=== PATIENT | male | born 1955 | race African-American/Black ===

== ENCOUNTER 2018-12-26 19:09 | Inpatient (IN) | payer MEDICAID, OTHER ==
[~2018-12-26] VITALS: Ht 175.3 cm; Wt 86.6 kg
[2018-12-26] MEDS ORDERED: NITROGLYCERIN OINT 1GM/INCH UDPKT TD ONE (20:00)
[2018-12-26] MEDS ORDERED: ASPIRIN 81MG TABLET PO ONE (20:00)
[2018-12-26 20:19] LABS: HEMATOCRIT. 40.4 % (42.0-52.0); HEMOGLOBIN. 12.4 g/dL (14.0-18.0); MEAN CORPUSCULAR HEMOGLOBIN 26.1 pg (28.0-32.0); MEAN CORPUSCULAR VOLUME 85.1 fL (80.0-94.0); MEAN PLATELET VOLUME 7.8 fl (7.4-10.4); PLATELET 294 x1000/uL (130-400); RED BLOOD CELL COUNT 4.75 mill/uL (4.7-6.1); RED CELL DISTRIBUTION WIDTH 19.6 % (11.6-14.6)
[2018-12-26 20:22] LABS: CHLORIDE 104 mEq/L (98-107)
[2018-12-26 20:44] LABS: PLATELET ESTIMATE NORMAL
[2018-12-26] MEDS ORDERED: FUROSEMIDE 40MG/4ML VIAL IVP ONE (21:45)
[2018-12-26] MEDS ORDERED: MORPHINE SULFATE 4 MG/ML CPJ (NOT FOR IM USE) IV ONE (21:45)
[2018-12-26 23:00] VITALS: BP 138/97
[2018-12-26 23:30] VITALS: BP 138/97
[2018-12-26] MEDS ORDERED: ACETAMINOPHEN 325MG TABLET PO PRN (23:30)
[2018-12-26] MEDS ORDERED: CLONIDINE 0.1MG TABLET PO PRN (23:30)
[2018-12-26] MEDS ORDERED: HYDRALAZINE 20MG/ML VIAL IV PRN (23:30)
[2018-12-26] MEDS ORDERED: ONDANSETRON HCL 4MG/2ML INJ IV PRN (23:30)
[2018-12-26] MEDS ORDERED: IPRATROPIUM/ALBUTEROL 0.5-3(2.5)MG/3ML NEB INH PRN (23:30)
[2018-12-26] MEDS ORDERED: GUAIFENESIN 200MG/10ML SUGAR FREE UDC PO PRN (23:30)
[2018-12-26] MEDS ORDERED: DEXTROSE 50% WATER 50ML SYRINGE IV PRN (23:30)
[2018-12-26] MEDS ORDERED: LORAZEPAM 2MG/ML CPJ IV PRN (23:30)
[2018-12-27] MEDS: SODIUM CHLORIDE 0.9% INJ 3ML FLUSH IVF SCH ×3 (06:00→21:05)
[2018-12-27] MEDS: BLOOD SUGAR DIAGNOSTIC STRIP TEST SCH ×4 (07:03→20:44)
[2018-12-27 07:28] LABS: HEMATOCRIT. 40.8 % (42.0-52.0); HEMOGLOBIN. 12.6 g/dL (14.0-18.0); MEAN CORPUSCULAR HEMOGLOBIN 26.2 pg (28.0-32.0); MEAN CORPUSCULAR VOLUME 85.1 fL (80.0-94.0); MEAN PLATELET VOLUME 8.3 fl (7.4-10.4); PLATELET 274 x1000/uL (130-400); RED BLOOD CELL COUNT 4.79 mill/uL (4.7-6.1); RED CELL DISTRIBUTION WIDTH 19.4 % (11.6-14.6)
[2018-12-27 07:53] LABS: CHLORIDE 106 mEq/L (98-107)
[2018-12-27 08:21] LABS: LDL CHOLESTEROL 38 mg/dL (5-100)
[2018-12-27 08:22] LABS: CREATINE KINASE 74 IU/L (39-308); HDL CHOLESTEROL 89 mg/dL (40-59)
[2018-12-27 08:26] LABS: CREATINE KINASE MB FRACTION 3.5 ng/mL (0.5-3.6); T4 FREE 1.47 ng/dL (0.76-1.46)
[2018-12-27] MEDS: INSULIN LISPRO 100 UNITS/ML SUBCUT SCH ×4 (08:31→20:44)
[2018-12-27] MEDS: ASPIRIN 81MG EC TABLET PO SCH (08:32)
[2018-12-27] MEDS: FUROSEMIDE 40MG/4ML VIAL IV SCH ×2 (08:32→18:27)
[2018-12-27] MEDS ORDERED: ENOXAPARIN 30MG/0.3ML SYR SUBCUT SCH (09:00)
[2018-12-27] MEDS ORDERED: ENOXAPARIN 60MG/0.6ML SYR SUBCUT SCH (09:45)
[2018-12-27] MEDS: HYDROMORPHONE HCL/PF 2MG/ML CPJ IV PRN ×2 (11:42→18:23)
[2018-12-27 12:00] VITALS: BP 124/89
[2018-12-27 14:22] LABS: PLATELET ESTIMATE NORMAL
[2018-12-27 16:00] VITALS: BP 106/77
[2018-12-27 16:07] LABS: CREATINE KINASE MB FRACTION 3.3 ng/mL (0.5-3.6)
[2018-12-27] MEDS: LEVOFLOXACIN 500MG PREMIX 100 ML IV SCH (18:23)
[2018-12-27 20:00] VITALS: BP 112/81
[2018-12-27] MEDS: IPRATROPIUM/ALBUTEROL 0.5-3(2.5)MG/3ML NEB HHN SCH (20:36)
[2018-12-27] MEDS: ENOXAPARIN 100MG/ML SYR SUBCUT SCH (20:48)
[2018-12-28] VITALS (7 sets, daily range): BP systolic 97–130; BP diastolic 63–87
[2018-12-28] MEDS: IPRATROPIUM/ALBUTEROL 0.5-3(2.5)MG/3ML NEB HHN SCH ×5 (00:33→20:49)
[2018-12-28] MEDS: HYDROMORPHONE HCL/PF 2MG/ML CPJ IV PRN (01:04)
[2018-12-28] MEDS: BLOOD SUGAR DIAGNOSTIC STRIP TEST SCH ×4 (06:28→20:23)
[2018-12-28] MEDS: SODIUM CHLORIDE 0.9% INJ 3ML FLUSH IVF SCH ×2 (06:28→20:52)
[2018-12-28] MEDS: INSULIN LISPRO 100 UNITS/ML SUBCUT SCH ×4 (07:58→20:24)
[2018-12-28] MEDS: ASPIRIN 81MG EC TABLET PO SCH (08:56)
[2018-12-28] MEDS: FUROSEMIDE 40MG/4ML VIAL IV SCH ×2 (08:56→17:52)
[2018-12-28] MEDS: ENOXAPARIN 100MG/ML SYR SUBCUT SCH ×2 (08:57→20:23)
[2018-12-28] MEDS: HYDROCODONE/ACETAMINOPHEN 10/325MG TABLET PO PRN ×2 (09:42→17:53)
[2018-12-28] MEDS: LEVOFLOXACIN 500MG PREMIX 100 ML IV SCH (09:43)
[2018-12-28] MEDS: DOCUSATE SODIUM 100MG CAPSULE PO PRN (20:22)
[2018-12-28] MEDS ORDERED: GABA-529 PO (20:29)
[2018-12-28] MEDS: GABAPENTIN 100MG CAPSULE PO SCH (20:52)
[2018-12-29] VITALS: BP 111/86
[2018-12-29] MEDS: HYDROCODONE/ACETAMINOPHEN 10/325MG TABLET PO PRN (00:15)
[2018-12-29] MEDS ORDERED: DIGOXIN 500MCG/2ML AMP IV PRN (00:30)
[2018-12-29] MEDS: IPRATROPIUM/ALBUTEROL 0.5-3(2.5)MG/3ML NEB HHN SCH ×4 (01:55→21:46)
[2018-12-29 04:00] VITALS: BP 125/78
[2018-12-29] MEDS: HYDROMORPHONE HCL/PF 2MG/ML CPJ IV PRN ×2 (04:56→21:26)
[2018-12-29] MEDS: SODIUM CHLORIDE 0.9% INJ 3ML FLUSH IVF SCH ×3 (04:56→22:00)
[2018-12-29 06:21] LABS: INR 1.1; PROTHROMBIN TIME 10.6 sec (9.1-11.1)
[2018-12-29 06:41] LABS: HEMATOCRIT. 34.5 % (42.0-52.0); HEMOGLOBIN. 10.7 g/dL (14.0-18.0); MEAN CORPUSCULAR HEMOGLOBIN 25.8 pg (28.0-32.0); MEAN PLATELET VOLUME 7.9 fl (7.4-10.4); PLATELET 229 x1000/uL (130-400); RED BLOOD CELL COUNT 4.16 mill/uL (4.7-6.1); RED CELL DISTRIBUTION WIDTH 18.8 % (11.6-14.6)
[2018-12-29] MEDS: INSULIN LISPRO 100 UNITS/ML SUBCUT SCH ×4 (07:41→21:25)
[2018-12-29] MEDS: BLOOD SUGAR DIAGNOSTIC STRIP TEST SCH ×4 (07:41→21:25)
[2018-12-29 08:00] VITALS: BP 113/81
[2018-12-29] MEDS: FUROSEMIDE 40MG/4ML VIAL IV SCH ×2 (08:45→17:02)
[2018-12-29] MEDS: ASPIRIN 81MG EC TABLET PO SCH (08:45)
[2018-12-29] MEDS: GABAPENTIN 100MG CAPSULE PO SCH (08:45)
[2018-12-29] MEDS: ENOXAPARIN 100MG/ML SYR SUBCUT SCH (08:45)
[2018-12-29] MEDS: LEVOFLOXACIN 500MG PREMIX 100 ML IV SCH (10:57)
[2018-12-29 12:00] VITALS: BP 116/68
[2018-12-29] MEDS ORDERED: POTASSIUM CHLORIDE 20MEQ TABLET SR PO NR (14:30)
[2018-12-29] MEDS: LIDOCAINE 5% PATCH TOP SCH (15:48)
[2018-12-29 16:00] VITALS: BP 108/78
[2018-12-29] MEDS: RIVAROXABAN 15 MG TABLET PO SCH (17:02)
[2018-12-29 20:00] VITALS: BP 142/88
[2018-12-29] MEDS: DOCUSATE SODIUM 100MG CAPSULE PO PRN (21:25)
[2018-12-29] MEDS: CARVEDILOL 3.125 MG TABLET PO SCH (21:26)
[2018-12-30] VITALS: BP 104/42
[2018-12-30] MEDS: IPRATROPIUM/ALBUTEROL 0.5-3(2.5)MG/3ML NEB HHN SCH ×4 (01:25→21:22)
[2018-12-30 04:00] VITALS: BP 113/80
[2018-12-30] MEDS: HYDROMORPHONE HCL/PF 2MG/ML CPJ IV PRN (04:41)
[2018-12-30] MEDS: SODIUM CHLORIDE 0.9% INJ 3ML FLUSH IVF SCH ×3 (04:41→22:00)
[2018-12-30] MEDS: BLOOD SUGAR DIAGNOSTIC STRIP TEST SCH ×4 (07:32→21:00)
[2018-12-30] MEDS: INSULIN LISPRO 100 UNITS/ML SUBCUT SCH ×4 (07:32→21:00)
[2018-12-30 08:09] VITALS: BP 110/81
[2018-12-30] MEDS: FUROSEMIDE 40MG/4ML VIAL IV SCH ×2 (08:21→17:12)
[2018-12-30] MEDS: CARVEDILOL 3.125 MG TABLET PO SCH ×2 (08:21→21:22)
[2018-12-30] MEDS: ASPIRIN 81MG EC TABLET PO SCH (08:21)
[2018-12-30] MEDS: RIVAROXABAN 15 MG TABLET PO SCH ×2 (08:21→17:12)
[2018-12-30] MEDS: GABAPENTIN 100MG CAPSULE PO SCH (08:21)
[2018-12-30] MEDS: LIDOCAINE 5% PATCH TOP SCH (08:23)
[2018-12-30 09:47] LABS: PLATELET ESTIMATE NORMAL
[2018-12-30] MEDS: LEVOFLOXACIN 500MG PREMIX 100 ML IV SCH (10:53)
[2018-12-30 12:00] VITALS: BP 106/70
[2018-12-30 16:00] VITALS: BP 90/62
[2018-12-30 20:00] VITALS: BP 120/82
[2018-12-30] MEDS: HYDROCODONE/ACETAMINOPHEN 10/325MG TABLET PO PRN (21:23)
[2018-12-31] VITALS: BP 115/78
[2018-12-31] MEDS: IPRATROPIUM/ALBUTEROL 0.5-3(2.5)MG/3ML NEB HHN SCH ×4 (01:29→21:48)
[2018-12-31 04:00] VITALS: BP 105/65
[2018-12-31] MEDS: SODIUM CHLORIDE 0.9% INJ 3ML FLUSH IVF SCH ×3 (06:18→21:45)
[2018-12-31 06:29] LABS: CHLORIDE 100 mEq/L (98-107)
[2018-12-31 06:37] LABS: HEMATOCRIT. 34.4 % (42.0-52.0); HEMOGLOBIN. 10.7 g/dL (14.0-18.0); MEAN CORPUSCULAR HEMOGLOBIN 25.9 pg (28.0-32.0); MEAN CORPUSCULAR VOLUME 83.2 fL (80.0-94.0); MEAN PLATELET VOLUME 8.4 fl (7.4-10.4); PLATELET 254 x1000/uL (130-400); RED BLOOD CELL COUNT 4.13 mill/uL (4.7-6.1); RED CELL DISTRIBUTION WIDTH 19.1 % (11.6-14.6)
[2018-12-31] MEDS: BLOOD SUGAR DIAGNOSTIC STRIP TEST SCH ×4 (07:40→21:51)
[2018-12-31 08:00] VITALS: BP 112/79
[2018-12-31] MEDS: INSULIN LISPRO 100 UNITS/ML SUBCUT SCH ×4 (08:10→21:00)
[2018-12-31] MEDS: FUROSEMIDE 40MG/4ML VIAL IV SCH (09:00)
[2018-12-31] MEDS: RIVAROXABAN 15 MG TABLET PO SCH ×2 (09:10→17:48)
[2018-12-31] MEDS: LIDOCAINE 5% PATCH TOP SCH (09:10)
[2018-12-31] MEDS: ASPIRIN 81MG EC TABLET PO SCH (09:10)
[2018-12-31] MEDS: GABAPENTIN 100MG CAPSULE PO SCH (09:10)
[2018-12-31] MEDS: CARVEDILOL 3.125 MG TABLET PO SCH ×2 (09:10→21:00)
[2018-12-31 12:00] VITALS: BP 113/74
[2018-12-31 12:59] LABS: PLATELET ESTIMATE NORMAL
[2018-12-31] MEDS: BUDESONIDE 0.5MG/2ML NEB HHN SCH ×2 (15:39→21:47)
[2018-12-31 16:00] VITALS: BP 116/72
[2018-12-31] MEDS: LEVOFLOXACIN 500MG TABLET PO SCH (17:49)
[2018-12-31 20:00] VITALS: BP 111/70
[2018-12-31] MEDS: FUROSEMIDE 40MG TABLET PO SCH (21:00)
[2018-12-31] MEDS: MAGNESIUM/ALUMINUM HYDROXIDE/SIMETHICONE 30ML UDC PO PRN (22:01)
[2019-01-01] VITALS (8 sets, daily range): BP systolic 99–128; BP diastolic 57–89
[2019-01-01] MEDS: IPRATROPIUM/ALBUTEROL 0.5-3(2.5)MG/3ML NEB HHN SCH ×4 (03:42→21:05)
[2019-01-01] MEDS: SODIUM CHLORIDE 0.9% INJ 3ML FLUSH IVF SCH ×3 (06:23→21:23)
[2019-01-01] MEDS: BLOOD SUGAR DIAGNOSTIC STRIP TEST SCH ×4 (06:23→21:23)
[2019-01-01] MEDS: INSULIN LISPRO 100 UNITS/ML SUBCUT SCH ×4 (08:10→21:00)
[2019-01-01] MEDS: BUDESONIDE 0.5MG/2ML NEB HHN SCH ×2 (08:23→21:05)
[2019-01-01] MEDS: ASPIRIN 81MG EC TABLET PO SCH (09:27)
[2019-01-01] MEDS: GABAPENTIN 100MG CAPSULE PO SCH (09:27)
[2019-01-01] MEDS: LIDOCAINE 5% PATCH TOP SCH (09:27)
[2019-01-01] MEDS: CARVEDILOL 3.125 MG TABLET PO SCH ×2 (09:28→20:29)
[2019-01-01] MEDS: RIVAROXABAN 15 MG TABLET PO SCH ×2 (09:28→18:30)
[2019-01-01] MEDS: FUROSEMIDE 40MG TABLET PO SCH ×2 (09:28→21:00)
[2019-01-01] MEDS: LEVOFLOXACIN 500MG TABLET PO SCH (12:32)
[2019-01-01] MEDS: MAGNESIUM/ALUMINUM HYDROXIDE/SIMETHICONE 30ML UDC PO PRN (19:32)
[2019-01-02] MEDS: IPRATROPIUM/ALBUTEROL 0.5-3(2.5)MG/3ML NEB HHN SCH ×3 (01:20→15:05)
[2019-01-02 04:00] VITALS: BP 106/54
[2019-01-02] MEDS: SODIUM CHLORIDE 0.9% INJ 3ML FLUSH IVF SCH (06:19)
[2019-01-02 06:24] LABS: HEMATOCRIT. 34.9 % (42.0-52.0); HEMOGLOBIN. 10.9 g/dL (14.0-18.0); MEAN CORPUSCULAR HEMOGLOBIN 25.8 pg (28.0-32.0); MEAN PLATELET VOLUME 7.3 fl (7.4-10.4); PLATELET 222 x1000/uL (130-400); RED BLOOD CELL COUNT 4.21 mill/uL (4.7-6.1); RED CELL DISTRIBUTION WIDTH 19.2 % (11.6-14.6)
[2019-01-02 06:29] LABS: CHLORIDE 100 mEq/L (98-107)
[2019-01-02] MEDS: BLOOD SUGAR DIAGNOSTIC STRIP TEST SCH ×2 (06:39→11:38)
[2019-01-02] MEDS: BUDESONIDE 0.5MG/2ML NEB HHN SCH (07:33)
[2019-01-02 08:00] VITALS: BP 99/57
[2019-01-02] MEDS: INSULIN LISPRO 100 UNITS/ML SUBCUT SCH ×2 (08:10→13:18)
[2019-01-02] MEDS: GABAPENTIN 100MG CAPSULE PO SCH (08:40)
[2019-01-02] MEDS: FUROSEMIDE 40MG TABLET PO SCH (08:40)
[2019-01-02] MEDS: RIVAROXABAN 15 MG TABLET PO SCH (08:40)
[2019-01-02] MEDS: ASPIRIN 81MG EC TABLET PO SCH (08:40)
[2019-01-02] MEDS: CARVEDILOL 3.125 MG TABLET PO SCH (08:41)
[2019-01-02] MEDS: LIDOCAINE 5% PATCH TOP SCH (08:46)
[2019-01-02] MEDS ORDERED: POTASSIUM CHLORIDE 20MEQ TABLET SR PO SCH (11:15)
[2019-01-02] MEDS: LEVOFLOXACIN 500MG TABLET PO SCH (11:22)
[2019-01-02 12:00] VITALS: BP 101/63
[2019-01-02 12:23] LABS: PLATELET ESTIMATE NORMAL
[2019-01-02] MEDS: MAGNESIUM/ALUMINUM HYDROXIDE/SIMETHICONE 30ML UDC PO PRN (13:35)
[2019-01-02 14:49] VITALS: BP 110/82
[2019-01-02 16:00] VITALS: BP 110/82
== END 2019-01-02 17:10 | disposition home health service (06) | DRG 134 ==
LOC: ER 19:09 → 7WST 22:03 → ENRESERV 22:34 → 7WST 23:34
PROVIDERS: ADMIT Internal Medicine; ATTEND Internal Medicine
DX: I26.99 Other pulmonary embolism without acute cor pulmonale (principal); N17.0 Acute kidney failure with tubular necrosis; J96.20 Acute and chronic respiratory failure, unspecified whether with hypoxia or hypercapnia; I50.43 Acute on chronic combined systolic (congestive) and diastolic (congestive) heart failure; D68.59 Other primary thrombophilia; E11.22 Type 2 diabetes mellitus with diabetic chronic kidney disease; I42.9 Cardiomyopathy, unspecified; I13.0 Hypertensive heart and chronic kidney disease with heart failure and stage 1 through stage 4 chronic kidney disease, or unspecified chronic kidney disease; M48.02 Spinal stenosis, cervical region; N14.1 Nephropathy induced by other drugs, medicaments and biological substances; N18.9 Chronic kidney disease, unspecified; D72.829 Elevated white blood cell count, unspecified; I48.92 Unspecified atrial flutter; D64.9 Anemia, unspecified; I25.10 Atherosclerotic heart disease of native coronary artery without angina pectoris; I25.2 Old myocardial infarction; J44.9 Chronic obstructive pulmonary disease, unspecified; Z79.899 Other long term (current) drug therapy; Z87.891 Personal history of nicotine dependence; Z95.1 Presence of aortocoronary bypass graft; Z95.5 Presence of coronary angioplasty implant and graft; Z87.01 Personal history of pneumonia (recurrent)
CPT/HCPCS: 36415; 71045; 78582; 80048; 80061; 82550; 82553; 82962; 83036; 83735; 83880; 84439; 84443; 84484; 85379; 93005; 93306; 93970; 94640; 96374; 96375; 97163; 99285; A9558; C1893; J1170; J1650; J1815; J1940; J1956; J2270; J7620; J7626

== ENCOUNTER 2020-05-29 14:14 | Emergency (ER) | payer MEDICARE, MEDICAID ==
[~2020-05-29] VITALS: Ht 177.8 cm; Wt 122.0 kg
[~2020-05-29 14:14] MED LIST: GABA-529 PO
[2020-05-29] MEDS ORDERED: IPRATROPIUM/ALBUTEROL 0.5-3(2.5)MG/3ML NEB HHN ONE (15:00)
[2020-05-29] MEDS ORDERED: SODIUM CHLORIDE 0.9% 1000ML BAG (SEPSIS BOLUS) IV ONE (15:15)
[2020-05-29 15:48] LABS: BASOPHILS % 1.2 % (0.0-2.0); EOSINOPHILS % 0.8 % (0.0-5.0); HEMATOCRIT. 32.4 % (42.0-52.0); HEMOGLOBIN. 10.4 g/dL (14.0-18.0); LYMPHOCYTES % 14.4 % (20.0-50.0); MEAN CORPUSCULAR HEMOGLOBIN 26.5 pg (28.0-32.0); MEAN CORPUSCULAR VOLUME 82.4 fL (80.0-94.0); MEAN PLATELET VOLUME 7.9 fl (7.4-10.4); MONOCYTES % 10.7 % (2.0-8.0); NEUTROPHILS % 72.9 % (40.0-76.0); PLATELET 201 x1000/uL (130-400); RED BLOOD CELL COUNT 3.93 mill/uL (4.7-6.1); RED CELL DISTRIBUTION WIDTH 19.2 % (11.6-14.6)
[2020-05-29 15:54] LABS: CHLORIDE 108 mEq/L (98-107)
[2020-05-29] MEDS ORDERED: LEVOFLOXACIN 500MG PREMIX 100 ML IV ONE (19:15)
[2020-05-29 19:30] VITALS: BP 163/94
== END 2020-05-29 20:00 | disposition left against medical advice (07) ==
LOC: ER 14:31 → EDBEDREQ 15:17 → ER 20:00 → CANBEDREQ 20:02
DX: I11.0 Hypertensive heart disease with heart failure (principal); I50.9 Heart failure, unspecified; Z20.828 Contact with and (suspected) exposure to other viral communicable diseases; E11.9 Type 2 diabetes mellitus without complications; J44.9 Chronic obstructive pulmonary disease, unspecified; L03.116 Cellulitis of left lower limb; L03.115 Cellulitis of right lower limb
CPT/HCPCS: 36415; 71045; 80053; 83605; 83880; 84484; 85025; 87040; 87635; 93005; 93970; 94640; 99285; J7030

== ENCOUNTER 2020-05-30 02:57 | Inpatient (IN) | payer MEDICARE, MEDICAID ==
[~2020-05-30] VITALS: Ht 172.7 cm; Wt 82.7 kg
[2020-05-30] MEDS ORDERED: ALBUTEROL (0.083%) 2.5MG/3ML NEB HHN STA (03:53)
[2020-05-30] MEDS ORDERED: IPRATROPIUM BROMIDE (0.02%) 0.5MG/2.5ML NEB HHN STA (03:53)
[2020-05-30] MEDS ORDERED: METHYLPREDNISOLONE SOD SUCC 125 MG/2 ML VIAL IV ONE (04:00)
[2020-05-30 06:16] LABS: BASOPHILS % 1.3 % (0.0-2.0); HEMATOCRIT. 36.1 % (42.0-52.0); HEMOGLOBIN. 11.6 g/dL (14.0-18.0); LYMPHOCYTES % 23.7 % (20.0-50.0); MEAN CORPUSCULAR HEMOGLOBIN 26.4 pg (28.0-32.0); MEAN CORPUSCULAR VOLUME 82.1 fL (80.0-94.0); MEAN PLATELET VOLUME 7.3 fl (7.4-10.4); MONOCYTES % 11.3 % (2.0-8.0); NEUTROPHILS % 62.7 % (40.0-76.0); PLATELET 206 x1000/uL (130-400); RED BLOOD CELL COUNT 4.39 mill/uL (4.7-6.1); RED CELL DISTRIBUTION WIDTH 19.4 % (11.6-14.6)
[2020-05-30 06:23] LABS: CHLORIDE 109 mEq/L (98-107)
[2020-05-30] MEDS ORDERED: ONDANSETRON HCL 4MG/2ML INJ IV PRN (08:15)
[2020-05-30] MEDS ORDERED: IPRATROPIUM/ALBUTEROL 0.5-3(2.5)MG/3ML NEB HHN PRN (08:15)
[2020-05-30] MEDS ORDERED: ACETAMINOPHEN 325MG TABLET PO PRN (08:15)
[2020-05-30] MEDS ORDERED: DIPHENHYDRAMINE 50MG/ML VIAL IV PRN (08:15)
[2020-05-30] MEDS ORDERED: CLONIDINE 0.1MG TABLET PO PRN (08:15)
[2020-05-30 08:26] LABS: PHOSPHORUS 2.8 mg/dL (2.5-4.9)
[2020-05-30] MEDS: HYDROCODONE/ACETAMINOPHEN 5/325MG TABLET PO PRN ×2 (08:38→16:57)
[2020-05-30 09:00] VITALS: BP 113/57
[2020-05-30 10:00] VITALS: BP 113/57
[2020-05-30 12:00] VITALS: BP 131/90
[2020-05-30] MEDS: METHYLPREDNISOLONE SOD SUCC 125 MG/2 ML VIAL IV SCH ×2 (12:00→17:24)
[2020-05-30] MEDS ORDERED: DEXTROSE 50% WATER 50ML SYRINGE IV PRN ×2 (12:30→15:45)
[2020-05-30] MEDS ORDERED: BLOOD SUGAR DIAGNOSTIC STRIP TEST SCH (12:40)
[2020-05-30] MEDS ORDERED: INSULIN LISPRO 100 UNITS/ML SUBCUT SCH (13:10)
[2020-05-30] MEDS: FUROSEMIDE 40MG/4ML VIAL IVP SCH (13:43)
[2020-05-30] MEDS ORDERED: ALBUTEROL 6.7GM HFA INHALER ORI PRN (15:45)
[2020-05-30 16:00] VITALS: BP 128/78
[2020-05-30] MEDS: ENOXAPARIN 40MG/0.4ML SYR SUBCUT SCH (16:46)
[2020-05-30] MEDS: BLOOD SUGAR DIAGNOSTIC STRIP TEST SCH ×2 (17:24→21:27)
[2020-05-30] MEDS: INSULIN LISPRO 100 UNITS/ML SUBCUT SCH ×2 (17:35→21:27)
[2020-05-30 20:00] VITALS: BP 154/98
[2020-05-31] VITALS: BP 138/86
[2020-05-31] MEDS: METHYLPREDNISOLONE SOD SUCC 125 MG/2 ML VIAL IV SCH ×5 (00:07→23:42)
[2020-05-31 04:00] VITALS: BP 130/80
[2020-05-31] MEDS: BLOOD SUGAR DIAGNOSTIC STRIP TEST SCH ×4 (07:40→20:43)
[2020-05-31 08:00] VITALS: BP 138/101
[2020-05-31] MEDS: INSULIN LISPRO 100 UNITS/ML SUBCUT SCH ×4 (08:47→20:42)
[2020-05-31] MEDS: FUROSEMIDE 40MG/4ML VIAL IVP SCH (09:03)
[2020-05-31] MEDS: ENOXAPARIN 40MG/0.4ML SYR SUBCUT SCH (09:07)
[2020-05-31] MEDS: HYDROCODONE/ACETAMINOPHEN 5/325MG TABLET PO PRN ×2 (09:10→20:53)
[2020-05-31] MEDS: LISINOPRIL 5MG TABLET PO SCH (11:46)
[2020-05-31] MEDS: CARVEDILOL 6.25 MG TABLET PO SCH ×2 (11:46→20:52)
[2020-05-31 12:00] VITALS: BP 127/86
[2020-05-31 16:00] VITALS: BP 102/58
[2020-05-31 20:00] VITALS: BP 123/86
[2020-05-31] MEDS ORDERED: PIPERACILLIN/TAZOBACTAM 3.375 G in DEXT 5% WATER 100 ML IV SCH (22:00)
[2020-06-01 04:00] VITALS: BP 111/68
[2020-06-01] MEDS: BLOOD SUGAR DIAGNOSTIC STRIP TEST SCH (05:37)
[2020-06-01] MEDS: METHYLPREDNISOLONE SOD SUCC 125 MG/2 ML VIAL IV SCH (05:37)
[2020-06-01] MEDS: HYDROCODONE/ACETAMINOPHEN 5/325MG TABLET PO PRN (05:48)
[2020-06-01] MEDS ORDERED: VANCOMYCIN 1250MG in DEXTROSE 5% WATER 250ML IV NR (06:00)
[2020-06-01] MEDS: INSULIN LISPRO 100 UNITS/ML SUBCUT SCH (06:12)
[2020-06-01 08:10] VITALS: BP 116/78
[2020-06-01] MEDS: CARVEDILOL 6.25 MG TABLET PO SCH (08:45)
[2020-06-01] MEDS: FUROSEMIDE 40MG/4ML VIAL IVP SCH (08:45)
[2020-06-01] MEDS: LISINOPRIL 5MG TABLET PO SCH (08:46)
[2020-06-01] MEDS: ENOXAPARIN 40MG/0.4ML SYR SUBCUT SCH (08:46)
[2020-06-01] MEDS ORDERED: VANCOMYCIN 750 MG PREMIX 150 ML IV SCH (18:00)
== END 2020-06-01 11:33 | disposition left against medical advice (07) | DRG 291 ==
LOC: ER 02:57 → 7WST 05:56 → CANRESERV 07:33 → ENRESERV 07:33 → ER 08:33
PROVIDERS: ADMIT Internal Medicine; ATTEND Internal Medicine
DX: I11.0 Hypertensive heart disease with heart failure (principal); J96.00 Acute respiratory failure, unspecified whether with hypoxia or hypercapnia; J44.1 Chronic obstructive pulmonary disease with (acute) exacerbation; I50.23 Acute on chronic systolic (congestive) heart failure; E11.65 Type 2 diabetes mellitus with hyperglycemia; Z53.29 Procedure and treatment not carried out because of patient's decision for other reasons; I25.119 Atherosclerotic heart disease of native coronary artery with unspecified angina pectoris; Z86.711 Personal history of pulmonary embolism; Z79.899 Other long term (current) drug therapy; Z91.19 Patient's noncompliance with other medical treatment and regimen
CPT/HCPCS: 36415; 71045; 80053; 82947; 82962; 83036; 83605; 83735; 83880; 84100; 84484; 85025; 87635; 93005; 93970; 94640; 96374; 99285; J1200; J1650; J1815; J1940; J2543; J2930; J3370; J7030; J7060

== ENCOUNTER 2021-09-26 05:11 | Inpatient (IN) | payer MEDICARE, MEDICAID ==
[~2021-09-26] VITALS: Ht 172.7 cm; Wt 91.2 kg
[2021-09-26] MEDS ORDERED: IPRATROPIUM BROMIDE (0.02%) 0.5MG/2.5ML NEB HHN STA (05:31)
[2021-09-26] MEDS ORDERED: METHYLPREDNISOLONE SOD SUCC 125 MG/2 ML VIAL IV STA (05:31)
[2021-09-26] MEDS ORDERED: ALBUTEROL (0.083%) 2.5MG/3ML NEB HHN SCH (06:00)
[2021-09-26 06:08] LABS: EOSINOPHILS % 5.9 % (0.0-5.0); HEMATOCRIT. 36.9 % (42.0-52.0); HEMOGLOBIN. 11.4 g/dL (14.0-18.0); LYMPHOCYTES % 17.8 % (20.0-50.0); MEAN CORPUSCULAR HEMOGLOBIN 30.3 pg (28.0-32.0); MEAN CORPUSCULAR VOLUME 97.7 fL (80.0-94.0); MONOCYTES % 12.6 % (2.0-8.0); NEUTROPHILS % 62.7 % (40.0-76.0); RED BLOOD CELL COUNT 3.78 mill/uL (4.7-6.1); RED CELL DISTRIBUTION WIDTH 18.7 % (11.6-14.6)
[2021-09-26 06:15] LABS: CHLORIDE 109 mEq/L (98-107)
[2021-09-26] MEDS ORDERED: VANCOMYCIN 1 G PREMIX 200 ML IV ONE (06:30)
[2021-09-26] MEDS ORDERED: PIPERACILLIN/TAZ 3.375G PREMIX 50 ML IV ONE (06:30)
[2021-09-26] MEDS ORDERED: FUROSEMIDE 40MG/4ML VIAL IVP ONE (07:00)
[2021-09-26] MEDS ORDERED: HYDROMORPHONE HCL/PF 2MG/ML CPJ IV ONE (07:00)
[2021-09-26] MEDS ORDERED: ACETAMINOPHEN 325MG TABLET PO PRN (08:30)
[2021-09-26] MEDS ORDERED: DIPHENHYDRAMINE 50MG/ML VIAL IV PRN (08:30)
[2021-09-26] MEDS ORDERED: CLONIDINE 0.1MG TABLET PO PRN (08:30)
[2021-09-26] MEDS ORDERED: ONDANSETRON HCL 4MG/2ML INJ IV PRN (08:30)
[2021-09-26 09:03] LABS: INR 1.1; PROTHROMBIN TIME 11.6 sec (9.6-11.0)
[2021-09-26] MEDS ORDERED: ENOXAPARIN 40MG/0.4ML SYR SUBCUT SCH (10:00)
[2021-09-26] MEDS: DEXT 5%/0.45% NACL 1000ML 1,000 ML IV SCH (11:15)
[2021-09-26] MEDS ORDERED: AMLODIPINE 5MG TABLET PO NR (11:45)
[2021-09-26] MEDS: NITROGLYCERIN OINT 1GM/INCH UDPKT TD SCH ×3 (12:05→21:04)
[2021-09-26] MEDS: MORPHINE SULFATE 2 MG/ML CPJ (NOT FOR IM USE) IV PRN ×2 (13:55→17:29)
[2021-09-26 14:59] LABS: CLARITY URINE CLEAR (CLEAR); KETONES URINE TRACE (NEGATIVE); LEUKOCYTE ESTERASE URINE NEGATIVE (NEGATIVE); NITRITE URINE NEGATIVE (NEGATIVE); OCCULT BLOOD URINE 2+ (NEGATIVE); PH URINE 5.5 (4.5-8.0); PROTEIN URINE 2+ (NEGATIVE); SPECIFIC GRAVITY URINE 1.011 (1.005-1.030); UROBILINOGEN URINE 0.2 E.U./dL (0.2-1.0)
[2021-09-26 15:00] LABS: COLOR URINE STRAW (YELLOW)
[2021-09-26 15:05] LABS: CREATINE KINASE 70 IU/L (39-308)
[2021-09-26 15:08] LABS: CREATINE KINASE MB FRACTION 1.1 ng/mL (0.5-3.6)
[2021-09-26 17:00] VITALS: BP 125/91
[2021-09-26] MEDS: FUROSEMIDE 40MG/4ML VIAL IVP SCH (17:29)
[2021-09-26 18:00] VITALS: BP 124/83
[2021-09-26] MEDS ORDERED: VANCOMYCIN 750 MG PREMIX 150 ML IV SCH ×2 (18:00→18:30)
[2021-09-26 19:00] VITALS: BP 134/90
[2021-09-26] MEDS ORDERED: POLY1POW14 MC (19:55)
[2021-09-26] MEDS ORDERED: METH-774 MT (19:55)
[2021-09-26] MEDS ORDERED: AZEL23SP2 (19:55)
[2021-09-26] MEDS ORDERED: NETA2.5D EACHEYE (19:55)
[2021-09-26] MEDS ORDERED: CALC-1098 MT (19:55)
[2021-09-26] MEDS: VANCOMYCIN 750 MG PREMIX 150 ML IV SCH (20:09)
[2021-09-26 20:10] VITALS: BP 146/84
[2021-09-26] MEDS: ATORVASTATIN CALCIUM 10MG TABLET PO SCH (21:04)
[2021-09-26 22:09] VITALS: BP 135/82
[2021-09-27] VITALS (12 sets, daily range): BP systolic 95–138; BP diastolic 42–91
[2021-09-27] MEDS: DEXT 5%/0.45% NACL 1000ML 1,000 ML IV SCH (04:59)
[2021-09-27] MEDS: NITROGLYCERIN OINT 1GM/INCH UDPKT TD SCH ×3 (06:53→22:00)
[2021-09-27] MEDS: ASPIRIN 81MG EC TABLET PO SCH (08:00)
[2021-09-27] MEDS: FUROSEMIDE 40MG/4ML VIAL IVP SCH ×2 (08:03→16:48)
[2021-09-27] MEDS: MORPHINE SULFATE 2 MG/ML CPJ (NOT FOR IM USE) IV PRN ×2 (08:04→16:49)
[2021-09-27] MEDS: CLOPIDOGREL 75MG TABLET PO SCH (08:05)
[2021-09-27] MEDS: VANCOMYCIN 750 MG PREMIX 150 ML IV SCH ×2 (08:05→20:06)
[2021-09-27] MEDS: POTASSIUM CHLORIDE 20MEQ TABLET SR PO SCH (08:05)
[2021-09-27] MEDS ORDERED: AMLODIPINE 5MG TABLET PO SCH (09:00)
[2021-09-27] MEDS ORDERED: ALBUTEROL (0.083%) 2.5MG/3ML NEB HHN SCH (09:15)
[2021-09-27] MEDS: ALBUTEROL (0.083%) 2.5MG/3ML NEB HHN SCH ×2 (10:06→14:12)
[2021-09-27] MEDS: GUAIFENESIN 600MG ER TABLET PO SCH ×2 (14:00→21:00)
[2021-09-27] MEDS: ALLOPURINOL 100 MG TABLET PO SCH (14:16)
[2021-09-27] MEDS: METOPROLOL TARTRATE 100MG TABLET PO SCH ×2 (14:16→21:00)
[2021-09-27] MEDS: APIXABAN 5 MG TABLET PO SCH ×2 (14:16→16:49)
[2021-09-27] MEDS ORDERED: BUME0.5T6 MT (16:58)
[2021-09-27] MEDS: ATORVASTATIN CALCIUM 10MG TABLET PO SCH (21:00)
[2021-09-27] MEDS: INSULIN GLARGINE UD 100 UNITS/ML SYR SUBCUT SCH (22:00)
[2021-09-28] VITALS (11 sets, daily range): BP systolic 107–136; BP diastolic 62–83
[2021-09-28] MEDS: NITROGLYCERIN OINT 1GM/INCH UDPKT TD SCH ×3 (06:25→21:35)
[2021-09-28] MEDS: FUROSEMIDE 40MG/4ML VIAL IVP SCH ×2 (07:15→17:15)
[2021-09-28] MEDS: ASPIRIN 81MG EC TABLET PO SCH (08:00)
[2021-09-28] MEDS: METOPROLOL TARTRATE 100MG TABLET PO SCH ×2 (09:00→21:00)
[2021-09-28] MEDS: GUAIFENESIN 600MG ER TABLET PO SCH ×2 (09:00→21:00)
[2021-09-28] MEDS: ALLOPURINOL 100 MG TABLET PO SCH (09:00)
[2021-09-28] MEDS: POTASSIUM CHLORIDE 20MEQ TABLET SR PO SCH (09:00)
[2021-09-28] MEDS: ALBUTEROL (0.083%) 2.5MG/3ML NEB HHN SCH ×4 (09:15→22:29)
[2021-09-28] MEDS: VANCOMYCIN 750 MG PREMIX 150 ML IV SCH ×2 (09:58→20:30)
[2021-09-28] MEDS: CLOPIDOGREL 75MG TABLET PO SCH (09:59)
[2021-09-28] MEDS: APIXABAN 5 MG TABLET PO SCH ×2 (10:00→17:00)
[2021-09-28] MEDS ORDERED: NALOXONE HCL 0.4MG/ML VIAL IV PRN (13:30)
[2021-09-28] MEDS: ATORVASTATIN CALCIUM 10MG TABLET PO SCH (21:00)
[2021-09-28] MEDS: INSULIN GLARGINE UD 100 UNITS/ML SYR SUBCUT SCH (21:35)
[2021-09-28] MEDS: MORPHINE SULFATE 2 MG/ML CPJ (NOT FOR IM USE) IV PRN (21:36)
[2021-09-29] VITALS: BP 138/87
[2021-09-29 02:00] VITALS: BP 148/89
[2021-09-29] MEDS: ALBUTEROL (0.083%) 2.5MG/3ML NEB HHN SCH ×2 (02:10→08:01)
[2021-09-29 04:00] VITALS: BP 144/88
[2021-09-29] MEDS: MORPHINE SULFATE 2 MG/ML CPJ (NOT FOR IM USE) IV PRN (05:58)
[2021-09-29] MEDS: NITROGLYCERIN OINT 1GM/INCH UDPKT TD SCH (05:58)
[2021-09-29 06:00] VITALS: BP 147/82
[2021-09-29] MEDS: FUROSEMIDE 40MG/4ML VIAL IVP SCH (07:15)
[2021-09-29] MEDS: ASPIRIN 81MG EC TABLET PO SCH (08:00)
[2021-09-29] MEDS: VANCOMYCIN 750 MG PREMIX 150 ML IV SCH (08:00)
[2021-09-29] MEDS: POTASSIUM CHLORIDE 20MEQ TABLET SR PO SCH (08:34)
[2021-09-29] MEDS: APIXABAN 5 MG TABLET PO SCH (08:34)
[2021-09-29] MEDS: METOPROLOL TARTRATE 100MG TABLET PO SCH (08:34)
[2021-09-29] MEDS: ALLOPURINOL 100 MG TABLET PO SCH (08:35)
[2021-09-29] MEDS: GUAIFENESIN 600MG ER TABLET PO SCH (08:35)
[2021-09-29] MEDS: CLOPIDOGREL 75MG TABLET PO SCH (08:35)
[2021-09-29 11:04] VITALS: BP 147/52
[2021-09-29] MEDS ORDERED: ISOSORBIDE MONONITRATE 60MG TABLET SR 24HR PO SCH (13:00)
== END 2021-09-29 12:30 | DRG 291 ==
LOC: ER 05:11 → 3WST 06:55 → ENRESERV 15:42
PROVIDERS: ADMIT Internal Medicine; ATTEND Internal Medicine
DX: I50.23 Acute on chronic systolic (congestive) heart failure (principal); J18.9 Pneumonia, unspecified organism; J96.01 Acute respiratory failure with hypoxia; E46 Unspecified protein-calorie malnutrition; J44.1 Chronic obstructive pulmonary disease with (acute) exacerbation; L03.116 Cellulitis of left lower limb; I48.92 Unspecified atrial flutter; D68.59 Other primary thrombophilia; I42.9 Cardiomyopathy, unspecified; B18.1 Chronic viral hepatitis B without delta-agent; J44.0 Chronic obstructive pulmonary disease with (acute) lower respiratory infection; N17.9 Acute kidney failure, unspecified; L03.115 Cellulitis of right lower limb; D84.9 Immunodeficiency, unspecified; D64.9 Anemia, unspecified; E11.42 Type 2 diabetes mellitus with diabetic polyneuropathy; E78.00 Pure hypercholesterolemia, unspecified; E78.5 Hyperlipidemia, unspecified; F17.210 Nicotine dependence, cigarettes, uncomplicated; G47.33 Obstructive sleep apnea (adult) (pediatric); G89.29 Other chronic pain; I11.0 Hypertensive heart disease with heart failure; I25.10 Atherosclerotic heart disease of native coronary artery without angina pectoris; M10.9 Gout, unspecified; I49.1 Atrial premature depolarization; E66.09 Other obesity due to excess calories; Z20.822 Contact with and (suspected) exposure to COVID-19; M48.02 Spinal stenosis, cervical region; H40.9 Unspecified glaucoma; I87.2 Venous insufficiency (chronic) (peripheral); I27.21 Secondary pulmonary arterial hypertension; I34.0 Nonrheumatic mitral (valve) insufficiency; I48.0 Paroxysmal atrial fibrillation; R19.7 Diarrhea, unspecified; Z68.34 Body mass index [BMI] 34.0-34.9, adult; Z86.711 Personal history of pulmonary embolism; Z95.5 Presence of coronary angioplasty implant and graft; I25.2 Old myocardial infarction; Z86.718 Personal history of other venous thrombosis and embolism; Z79.899 Other long term (current) drug therapy; Z71.6 Tobacco abuse counseling
CPT/HCPCS: 36415; 71045; 80053; 81003; 82550; 82553; 82962; 83605; 83880; 84484; 85025; 87015; 87045; 87426; 87427; 87449; 89055; 93005; 93306; 93970; 94640; 94644; 99291; A6261; J1170; J1650; J1815; J1940; J2270; J2543; J2930; J3370; J7070